=== PATIENT | male | born 1975 | race Caucasian/White ===

== ENCOUNTER 2017-04-25 21:55 | Emergency (ER) | payer SELFPAY ==
--- NOTE | 2017-04-25 22:44 | EDM.PDOC ---
[id number]: EVALUATION Time Seen by Provider: 04/25/17 22:41 Source of Information: Reports: Patient, Other ( friend) History Limitations: Reports: No Limitations - History of Present Illness INITIAL COMMENTS - FREE TEXT/NARRATIVE: pt has been severely depressed for the past 3 weeks. He has felt suicidal. Tonight he was going to shot himself with his friends gun. He has been drinkibng tonight. He had bout 6 beers. f Onset: Gradual Duration: Day(s): Location: Reports: Other (increased depression. Pt has a long history of depression. ) Associated Symptoms: Reports: No Other Symptoms Neck Pain Score (Numeric/FACES): 6 - Related Data Allergies Allergy/AdvReac Type Severity Reaction Status Date / Time Penicillins Allergy Cannot Verified 04/25/17 22:03 Remember Home Meds: Home Meds NK [No Known Home Meds] 04/25/17 [History] Past Medical History Psychiatric History: Reports: Depression, Psych Hospitalization(s), Suicidal Ideation - Infectious Disease History Infectious Disease History: Reports: Chicken Pox Social & Family History - Tobacco Use Smoking Status *Q: Current Every Day Smoker Years of Tobacco use: 35 Packs/Tins Daily: 1 - Caffeine Use Caffeine Use: Reports: Soda - Alcohol Use Days Per Week of Alcohol Use: 5 Number of Drinks Per Day: 6 Total Drinks Per Week: 30 - Recreational Drug Use Recreational Drug Use: Yes Recreational Drug Type: Reports: Marijuana/Hashish Recreational Drug Use Frequency: Weekly ED ROS GENERAL - Review of Systems Review Of Systems: See Below Constitutional: Reports: No Symptoms HEENT: Reports: No Symptoms Respiratory: Reports: No Symptoms Cardiovascular: Reports: No Symptoms Endocrine: Reports: No Symptoms GI/Abdominal: Reports: No Symptoms : Reports: No Symptoms Musculoskeletal: Reports: No Symptoms Skin: Reports: No Symptoms Neurological: Reports: No Symptoms Psychiatric: Reports: Agitation, Anxiety, Depression, Suicidal Ideation ED EXAM, BEHAVIORAL HEALTH - Physical Exam Exam: See Below Text/Narrative:: pt has a long history of depression but has not been medicated in the past. Exam Limited By: No Limitations General Appearance: Alert, Anxious Ears: Normal TMs Throat/Mouth: Normal Inspection Head: Atraumatic Respiratory/Chest: No Respiratory Distress Cardiovascular: Regular Rate, Rhythm GI/Abdominal: Soft, Non-Tender (Male) Exam: Deferred Rectal (Males) Exam: Deferred Back Exam: Normal Inspection Extremities: Normal Inspection Neurological: Alert, Normal Cognition Psychiatric: Alert, Normal Cognition, Oriented, Depressed Mood, Agitated, Suicidal Plan, Suicidal Thoughts, Other (pt had a gun and was going to shoot himself tonight. ) COURSE, BEHAVIORAL HEALTH COMP - Course Vital Signs: Last Vital Signs Temp 36.7 C 04/26/17 06:00 Pulse 82 04/26/17 06:00 Resp 12 04/26/17 06:00 BP 132/81 04/26/17 06:00 Pulse Ox 94 L 04/26/17 06:00 Orders, Labs, Meds: Laboratory Tests 04/25/17 04/25/17 04/25/17 Range/Units 22:27 22:27 22:27 WBC 9.6 (4.5-11.0) K/uL RBC 5.38 (4.30-5.90) M/uL Hgb 18.1 H* (12.0-15.0) g/dL Hct 51.3 (40.0-54.0) % MCV 95 (80-98) fL MCH 34 H (27-31) pg MCHC 35 (32-36) % Plt Count 330 (150-400) K/uL Neut % (Auto) 57 (36-66) % Lymph % (Auto) 26 (24-44) % [place] % (Auto) 11 H (2-6) % Eos % (Auto) 3 (2-4) % Baso % (Auto) 3 H (0-1) % Sodium 145 (140-148) mmol/L Potassium 3.8 (3.6-5.2) mmol/L Chloride 104 (100-108) mmol/L Carbon Dioxide 23 (21-32) mmol/L Anion Gap 18.1 H (5.0-14.0) mmol/L BUN 3 L (7-18) mg/dL Creatinine 0.7 L (0.8-1.3) mg/dL Est Cr Clr Drug Dosing 122.71 mL/min Estimated GFR (MDRD) > 60 (>60) Glucose 107 H (74-106) mg/dL Calcium 8.7 (8.5-10.1) mg/dL Total Bilirubin 0.2 (0.2-1.0) mg/dL AST 64 H (15-37) U/L ALT 58 (12-78) U/L Alkaline Phosphatase 98 (46-116) U/L Total Protein 8.2 (6.4-8.2) g/dL Albumin 4.4 (3.4-5.0) g/dL Globulin 3.8 H (2.3-3.5) g/dL Albumin/Globulin Ratio 1.2 (1.2-2.2) TSH, Ultra Sensitive (0.358-3.740) uIU/mL Urine Color Urine Appearance Urine pH (4.5-8.0) Ur Specific [place] (1.008-1.030) Urine Protein (NEGATIVE) mg/dL Urine Glucose (UA) (NEGATIVE) mg/dL Urine Ketones (NEGATIVE) mg/dL Urine Occult Blood (NEGATIVE) Urine Nitrite (NEGAITVE) Urine Bilirubin (NEGATIVE) Urine Urobilinogen (NORMAL) mg/dL Ur Leukocyte Esterase (NEGATIVE) Urine RBC (0-5) Urine WBC (0-5) Ur Epithelial Cells Amorphous Sediment Urine Bacteria Urine Mucus Urine Opiates Screen (NEGATIVE) Ur Oxycodone Screen (NEGATIVE) Urine Methadone Screen (NEGATIVE) Ur Propoxyphene Screen (NEGATIVE) Ur Barbiturates Screen (NEGATIVE) Ur Tricyclics Screen (NEGATIVE) Ur Phencyclidine Scrn (NEGATIVE) Ur Amphetamine Screen (NEGATIVE) U Methamphetamines Scrn (NEGATIVE) Urine MDMA Screen (NEGATIVE) U Benzodiazepines Scrn (NEGATIVE) U Cocaine Metab Screen (NEGATIVE) U Marijuana (THC) Screen (NEGATIVE) Ethyl Alcohol 354 mg/dL 04/25/17 04/25/17 04/25/17 Range/Units 22:32 22:32 22:44 WBC (4.5-11.0) K/uL RBC (4.30-5.90) M/uL Hgb (12.0-15.0) g/dL Hct (40.0-54.0) % MCV (80-98) fL MCH (27-31) pg MCHC (32-36) % Plt Count (150-400) K/uL Neut % (Auto) (36-66) % Lymph % (Auto) (24-44) % [place] % (Auto) (2-6) % Eos % (Auto) (2-4) % Baso % (Auto) (0-1) % Sodium (140-148) mmol/L Potassium (3.6-5.2) mmol/L Chloride (100-108) mmol/L Carbon Dioxide (21-32) mmol/L Anion Gap (5.0-14.0) mmol/L BUN (7-18) mg/dL Creatinine (0.8-1.3) mg/dL Est Cr Clr Drug Dosing mL/min Estimated GFR (MDRD) (>60) Glucose (74-106) mg/dL Calcium (8.5-10.1) mg/dL Total Bilirubin (0.2-1.0) mg/dL AST (15-37) U/L ALT (12-78) U/L Alkaline Phosphatase (46-116) U/L Total Protein (6.4-8.2) g/dL Albumin (3.4-5.0) g/dL Globulin (2.3-3.5) g/dL Albumin/Globulin Ratio (1.2-2.2) TSH, Ultra Sensitive 5.298 H (0.358-3.740) uIU/mL Urine Color Yellow Urine Appearance Clear Urine pH 5.0 (4.5-8.0) Ur Specific [place] 1.015 (1.008-1.030) Urine Protein Negative (NEGATIVE) mg/dL Urine Glucose (UA) Normal (NEGATIVE) mg/dL Urine Ketones Negative (NEGATIVE) mg/dL Urine Occult Blood Negative (NEGATIVE) Urine Nitrite Negative (NEGAITVE) Urine Bilirubin Negative (NEGATIVE) Urine Urobilinogen Normal (NORMAL) mg/dL Ur Leukocyte Esterase Negative (NEGATIVE) Urine RBC 0-5 (0-5) Urine WBC 0-5 (0-5) Ur Epithelial Cells Not seen Amorphous Sediment Not seen Urine Bacteria Not seen Urine Mucus Not seen Urine Opiates Screen Negative (NEGATIVE) Ur Oxycodone Screen Negative (NEGATIVE) Urine Methadone Screen Negative (NEGATIVE) Ur Propoxyphene Screen Negative (NEGATIVE) Ur Barbiturates Screen Negative (NEGATIVE) Ur Tricyclics Screen Negative (NEGATIVE) Ur Phencyclidine Scrn Negative (NEGATIVE) Ur Amphetamine Screen Negative (NEGATIVE) U Methamphetamines Scrn Negative (NEGATIVE) Urine MDMA Screen Negative (NEGATIVE) U Benzodiazepines Scrn Negative (NEGATIVE) U Cocaine Metab Screen Negative (NEGATIVE) U Marijuana (THC) Screen Negative (NEGATIVE) Ethyl Alcohol mg/dL 04/26/17 Range/Units 02:20 WBC (4.5-11.0) K/uL RBC (4.30-5.90) M/uL Hgb (12.0-15.0) g/dL Hct (40.0-54.0) % MCV (80-98) fL MCH (27-31) pg MCHC (32-36) % Plt Count (150-400) K/uL Neut % (Auto) (36-66) % Lymph % (Auto) (24-44) % [place] % (Auto) (2-6) % Eos % (Auto) (2-4) % Baso % (Auto) (0-1) % Sodium (140-148) mmol/L Potassium (3.6-5.2) mmol/L Chloride (100-108) mmol/L Carbon Dioxide (21-32) mmol/L Anion Gap (5.0-14.0) mmol/L BUN (7-18) mg/dL Creatinine (0.8-1.3) mg/dL Est Cr Clr Drug Dosing mL/min Estimated GFR (MDRD) (>60) Glucose (74-106) mg/dL Calcium (8.5-10.1) mg/dL Total Bilirubin (0.2-1.0) mg/dL AST (15-37) U/L ALT (12-78) U/L Alkaline Phosphatase (46-116) U/L Total Protein (6.4-8.2) g/dL Albumin (3.4-5.0) g/dL Globulin (2.3-3.5) g/dL Albumin/Globulin Ratio (1.2-2.2) TSH, Ultra Sensitive (0.358-3.740) uIU/mL Urine Color Urine Appearance Urine pH (4.5-8.0) Ur Specific [place] (1.008-1.030) Urine Protein (NEGATIVE) mg/dL Urine Glucose (UA) (NEGATIVE) mg/dL Urine Ketones (NEGATIVE) mg/dL Urine Occult Blood (NEGATIVE) Urine Nitrite (NEGAITVE) Urine Bilirubin (NEGATIVE) Urine Urobilinogen (NORMAL) mg/dL Ur Leukocyte Esterase (NEGATIVE) Urine RBC (0-5) Urine WBC (0-5) Ur Epithelial Cells Amorphous Sediment Urine Bacteria Urine Mucus Urine Opiates Screen (NEGATIVE) Ur Oxycodone Screen (NEGATIVE) Urine Methadone Screen (NEGATIVE) Ur Propoxyphene Screen (NEGATIVE) Ur Barbiturates Screen (NEGATIVE) Ur Tricyclics Screen (NEGATIVE) Ur Phencyclidine Scrn (NEGATIVE) Ur Amphetamine Screen (NEGATIVE) U Methamphetamines Scrn (NEGATIVE) Urine MDMA Screen (NEGATIVE) U Benzodiazepines Scrn (NEGATIVE) U Cocaine Metab Screen (NEGATIVE) U Marijuana (THC) Screen (NEGATIVE) Ethyl Alcohol 224 mg/dL Medications Discontinued Medications Generic Name Dose Route Start Last Admin Trade Name Freq PRN Reason Stop Dose Admin Sodium Chloride 1,000 mls @ 999 mls/hr 04/26/17 01:00 04/26/17 01:17 Normal Saline IV 999 mls/hr ASDIRECTED STEPHEN Administration Lorazepam 1 mg 04/25/17 23:44 04/25/17 23:51 Ativan PO 04/25/17 23:45 1 mg ONETIME ONE Administration Medical Clearance: 04/26/17 02:17 pt had a neg drug scree. His etoh was greater than 3. He clearly has felt suicidal for 3 weeks. Departure - Departure Time of Disposition: 06:55 Disposition: DC/Tfer to Psych Hosp/Unit 65 Condition: Poor Clinical Impression: Depression, Suicidal ideation - Discharge Information Referrals: PCP,None [Primary Care Provider] - Forms: ED Department Discharge Care Plan Goals: transfer to [facility] in [place]
[2017-04-25] MEDS ORDERED: LORazepam 1 MG Tab PO ONE (23:44)
[2017-04-26] MEDS ORDERED: Sodium Chloride 0.9% 1,000 ML IV SCH (01:00)
[2017-04-26 06:02] VITALS: BP 132/81
== END 2017-04-26 06:54 ==
LOC: JP.ED 21:55
DX: F32.9 Major depressive disorder, single episode, unspecified (principal); R45.851 Suicidal ideations; F17.210 Nicotine dependence, cigarettes, uncomplicated; Z88.0 Allergy status to penicillin
CPT/HCPCS: 36415; 80053; 80305; 81001; 84443; 85025; 96360; 99285; A9270; G0480; J7040

== ENCOUNTER 2019-11-19 10:50 | Emergency (ER) | payer MEDICAID ==
--- NOTE | 2019-11-19 13:50 | EDM.PDOCBH ---
ED HPI GENERAL MEDICAL PROBLEM - General Chief Complaint: Behavioral/Psych Stated Complaint: EVAL Time Seen by Provider: 11/19/19 11:45 Source of Information: Reports: Patient History Limitations: Reports: No Limitations - History of Present Illness INITIAL COMMENTS - FREE TEXT/NARRATIVE: pt arrived with a history of persistent depression. He has not been medicated/ He has no insurance He can not afford the medicatiopn he was perscribed in the past. Onset: Other (pt had 2 beers last nite. He was very depressed and he went to [employer]. They did not know he was there. He took a gun and he was going to use it on himself. At this point he does not feel suicidal but he is looking for help. ) Duration: Hour(s): Location: Reports: Generalized Associated Symptoms: Reports: No Other Symptoms lower back and feet Pain Score (Numeric/FACES): 5 - Related Data Allergies Allergy/AdvReac Type Severity Reaction Status Date / Time Penicillins Allergy Cannot Verified 11/19/19 11:43 Remember Home Meds: Home Meds NK [No Known Home Meds] 04/25/17 [History] Past Medical History Musculoskeletal History: Reports: Back Pain, Chronic Psychiatric History: Reports: Depression, Psych Hospitalization(s), Suicidal Ideation Other Psychiatric History: thought about using a gun but no acess to one - Infectious Disease History Infectious Disease History: Reports: Chicken Pox, Influenza Social & Family History - Tobacco Use Smoking Status *Q: Current Every Day Smoker Years of Tobacco use: 37 Packs/Tins Daily: 1 - Caffeine Use Caffeine Use: Reports: Soda - Recreational Drug Use Recreational Drug Use: Yes Recreational Drug Type: Reports: Marijuana/Hashish ED ROS GENERAL - Review of Systems Review Of Systems: See Below Constitutional: Reports: No Symptoms HEENT: Reports: No Symptoms Respiratory: Reports: No Symptoms Cardiovascular: Reports: No Symptoms Endocrine: Reports: No Symptoms GI/Abdominal: Reports: No Symptoms Musculoskeletal: Reports: No Symptoms Skin: Reports: No Symptoms Neurological: Reports: No Symptoms Psychiatric: Reports: Anxiety, Depression, Suicidal Ideation ED EXAM, BEHAVIORAL HEALTH - Physical Exam Exam: See Below Text/Narrative:: pt arrived with a history of being quite depressed for a long period of time. He has not been able to afford his medication so it was not filled. He has no insurance. He works regularly at [employer] [place]. Exam Limited By: No Limitations General Appearance: Alert, No Apparent Distress, Anxious Ears: Normal TMs Nose: Normal Inspection Throat/Mouth: Normal Inspection Head: Atraumatic Neck: Normal Inspection Respiratory/Chest: No Respiratory Distress Cardiovascular: Regular Rate, Rhythm GI/Abdominal: Soft, Non-Tender (Male) Exam: Deferred Back Exam: Normal Inspection Extremities: Normal Inspection COURSE, BEHAVIORAL HEALTH COMP - Course Vital Signs: Last Vital Signs Temp 37.3 C 11/19/19 15:23 Pulse 60 11/19/19 17:08 Resp 18 11/19/19 17:08 BP 133/88 11/19/19 17:08 Pulse Ox 99 11/19/19 17:08 Orders, Labs, Meds: Laboratory Tests 11/19/19 11/19/19 11/19/19 Range/Units 12:42 12:42 12:49 WBC 9.0 (4.5-11.0) K/uL RBC 4.91 (4.30-5.90) M/uL Hgb 16.1 H D (12.0-15.0) g/dL Hct 47.5 (40.0-54.0) % MCV 97 (80-98) fL MCH 33 H (27-31) pg MCHC 34 (32-36) % Plt Count 282 (150-400) K/uL Neut % (Auto) 66 (36-66) % Lymph % (Auto) 16 L (24-44) % [place] % (Auto) 14 H (2-6) % Eos % (Auto) 3 (2-4) % Baso % (Auto) 1 (0-1) % Sodium (140-148) mmol/L Potassium (3.6-5.2) mmol/L Chloride (100-108) mmol/L Carbon Dioxide (21-32) mmol/L Anion Gap (5.0-14.0) mmol/L BUN (7-18) mg/dL Creatinine (0.8-1.3) mg/dL Est Cr Clr Drug Dosing mL/min Estimated GFR (MDRD) (>60) Glucose (74-106) mg/dL Calcium (8.5-10.1) mg/dL Total Bilirubin (0.2-1.0) mg/dL AST (15-37) U/L ALT (12-78) U/L Alkaline Phosphatase (46-116) U/L Total Protein (6.4-8.2) g/dL Albumin (3.4-5.0) g/dL Globulin (2.3-3.5) g/dL Albumin/Globulin Ratio (1.2-2.2) Urine Color Yellow (YELLOW) Urine Appearance Clear (CLEAR) Urine pH 6.0 (5.0-8.0) Ur Specific [place] 1.015 (1.008-1.030) Urine Protein Negative (NEGATIVE) mg/dL Urine Glucose (UA) Negative (NEGATIVE) mg/dL Urine Ketones Negative (NEGATIVE) mg/dL Urine Occult Blood Negative (NEGATIVE) Urine Nitrite Negative (NEGATIVE) Urine Bilirubin Negative (NEGATIVE) Urine Urobilinogen 1.0 (0.2-1.0) EU/dL Ur Leukocyte Esterase Negative (NEGATIVE) Urine RBC Not seen (0-5) Urine WBC Not seen (0-5) Ur Epithelial Cells Not seen Amorphous Sediment Rare Urine Bacteria Not seen Urine Mucus Rare Urine Opiates Screen Negative (NEGATIVE) Ur Oxycodone Screen Negative (NEGATIVE) Urine Methadone Screen Negative (NEGATIVE) Ur Propoxyphene Screen Negative (NEGATIVE) Ur Barbiturates Screen Negative (NEGATIVE) Ur Tricyclics Screen Negative (NEGATIVE) Ur Phencyclidine Scrn Negative (NEGATIVE) Ur Amphetamine Screen Negative (NEGATIVE) U Methamphetamines Scrn Negative (NEGATIVE) Urine MDMA Screen Negative (NEGATIVE) U Benzodiazepines Scrn Negative (NEGATIVE) U Cocaine Metab Screen Negative (NEGATIVE) U Marijuana (THC) Screen Negative (NEGATIVE) Ethyl Alcohol mg/dL 11/19/19 11/19/19 Range/Units 12:49 12:49 WBC (4.5-11.0) K/uL RBC (4.30-5.90) M/uL Hgb (12.0-15.0) g/dL Hct (40.0-54.0) % MCV (80-98) fL MCH (27-31) pg MCHC (32-36) % Plt Count (150-400) K/uL Neut % (Auto) (36-66) % Lymph % (Auto) (24-44) % [place] % (Auto) (2-6) % Eos % (Auto) (2-4) % Baso % (Auto) (0-1) % Sodium 133 L (140-148) mmol/L Potassium 3.8 (3.6-5.2) mmol/L Chloride 95 L (100-108) mmol/L Carbon Dioxide 29 (21-32) mmol/L Anion Gap 12.8 (5.0-14.0) mmol/L BUN 4 L (7-18) mg/dL Creatinine 0.9 (0.8-1.3) mg/dL Est Cr Clr Drug Dosing 86.63 mL/min Estimated GFR (MDRD) > 60 (>60) Glucose 134 H (74-106) mg/dL Calcium 8.4 L (8.5-10.1) mg/dL Total Bilirubin 0.9 D (0.2-1.0) mg/dL AST 49 H (15-37) U/L ALT 32 (12-78) U/L Alkaline Phosphatase 93 (46-116) U/L Total Protein 7.2 (6.4-8.2) g/dL Albumin 4.0 (3.4-5.0) g/dL Globulin 3.2 (2.3-3.5) g/dL Albumin/Globulin Ratio 1.3 (1.2-2.2) Urine Color (YELLOW) Urine Appearance (CLEAR) Urine pH (5.0-8.0) Ur Specific [place] (1.008-1.030) Urine Protein (NEGATIVE) mg/dL Urine Glucose (UA) (NEGATIVE) mg/dL Urine Ketones (NEGATIVE) mg/dL Urine Occult Blood (NEGATIVE) Urine Nitrite (NEGATIVE) Urine Bilirubin (NEGATIVE) Urine Urobilinogen (0.2-1.0) EU/dL Ur Leukocyte Esterase (NEGATIVE) Urine RBC (0-5) Urine WBC (0-5) Ur Epithelial Cells Amorphous Sediment Urine Bacteria Urine Mucus Urine Opiates Screen (NEGATIVE) Ur Oxycodone Screen (NEGATIVE) Urine Methadone Screen (NEGATIVE) Ur Propoxyphene Screen (NEGATIVE) Ur Barbiturates Screen (NEGATIVE) Ur Tricyclics Screen (NEGATIVE) Ur Phencyclidine Scrn (NEGATIVE) Ur Amphetamine Screen (NEGATIVE) U Methamphetamines Scrn (NEGATIVE) Urine MDMA Screen (NEGATIVE) U Benzodiazepines Scrn (NEGATIVE) U Cocaine Metab Screen (NEGATIVE) U Marijuana (THC) Screen (NEGATIVE) Ethyl Alcohol < 3 mg/dL Medications Discontinued Medications Generic Name Dose Route Start Last Admin Trade Name Freq PRN Reason Stop Dose Admin Lorazepam 0.5 mg 11/19/19 15:50 11/19/19 15:55 Ativan PO 11/19/19 15:51 0.5 mg ONETIME ONE Administration Metoprolol Succinate 25 mg 11/19/19 15:42 11/19/19 15:53 Toprol Xl PO 11/19/19 15:43 25 mg ONETIME ONE Administration Nicotine 21 mg 11/19/19 18:56 11/19/19 19:05 Habitrol TRDERM 11/19/19 18:57 21 mg ONETIME ONE Administration Medical Clearance: 11/19/19 14:03 pt had a gun and stated he was going to use it on himself. His drug screen is neg. He states he does use Pot at times. He is unable to purchase his meds because he has no insurance. [facility] DID HELP HIM FILL OUT THE MEDICAL ASSISTANCE FORM. 11/19/19 15:52 Departure - Departure Time of Disposition: 20:00 Disposition: DC/Tfer to Psych Hosp/Unit 65 Condition: Fair Clinical Impression: Depression, Suicidal behavior with attempted self-injury - Discharge Information Referrals: PCP,None [Primary Care Provider] - Forms: ED Department Discharge Care Plan Goals: TRANSFER TO [facility]. FOR INPATIENT CARE Sepsis Event Note - Evaluation Sepsis Screening Result: No Definite Risk - Focused Exam Date Exam was Performed: 11/24/19 Time Exam was Performed: 07:17
[2019-11-19] MEDS ORDERED: Metoprolol Succinate 25 MG Tab.ER PO ONE (15:42)
[2019-11-19] MEDS ORDERED: LORazepam 0.5 MG Tab PO ONE (15:50)
[2019-11-19 17:09] VITALS: BP 133/88; PULSE 60
[2019-11-19] MEDS ORDERED: Nicotine 21 MG/24 Hr Patch TRDERM ONE (18:56)
== END 2019-11-19 22:16 ==
LOC: JP.ED 10:50
DX: F32.9 Major depressive disorder, single episode, unspecified (principal); F17.210 Nicotine dependence, cigarettes, uncomplicated; Z91.5 Personal history of self-harm; Z88.0 Allergy status to penicillin
CPT/HCPCS: 36415; 80053; 80305; 80320; 81001; 85025; 99284; A9270; G0480

== ENCOUNTER 2021-09-19 20:16 | Emergency (ER) | payer MEDICAID ==
[2021-09-19 23:08] VITALS: BP 163/117; PULSE 85
--- NOTE | 2021-09-19 23:33 | EDM.PDOC ---
ED HPI GENERAL MEDICAL PROBLEM - General Chief Complaint: Upper Extremity Injury/Pain Stated Complaint: FELL HURT LEFT SHOULDER Time Seen by Provider: 09/19/21 22:59 Source of Information: Reports: Patient History Limitations: Reports: No Limitations - History of Present Illness INITIAL COMMENTS - FREE TEXT/NARRATIVE: A 45-year-old male presenting to the ED for evaluation of left shoulder pain and bruising. The patient slipped and fell on a concrete floor several days ago causing injury to his left shoulder. Since then he has been unable to raise the arm above 90 degrees. He denies any new numbness or tingling. His only limitation in his range of motion. Does have significant bruising over the deltoid and upper part of the shoulder. - Related Data Allergies Allergy/AdvReac Type Severity Reaction Status Date / Time Penicillins Allergy Cannot Verified 11/19/19 11:43 Remember Home Meds: Home Meds NK [No Known Home Meds] 04/25/17 [History] Past Medical History Musculoskeletal History: Reports: Back Pain, Chronic Psychiatric History: Reports: Depression, Psych Hospitalization(s), Suicidal Ideation Other Psychiatric History: thought about using a gun but no acess to one - Infectious Disease History Infectious Disease History: Reports: Chicken Pox, Influenza Social & Family History - Tobacco Use Tobacco Use Status *Q: Current Every Day Tobacco User Years of Tobacco use: 30 Packs/Tins Daily: 0.1 - Caffeine Use Caffeine Use: Reports: Coffee Caffeine Use Comment: occassional coffee - Alcohol Use Days Per Week of Alcohol Use: 1 Number of Drinks Per Day: 1 Total Drinks Per Week: 1 - Recreational Drug Use Recreational Drug Use: No Review of Systems - Review of Systems Review Of Systems: See Below Constitutional: Reports: No Symptoms Musculoskeletal: Reports: Shoulder Pain (Left shoulder pain with reduced range of motion after sustaining a fall on a concrete floor 2 days ago.) ED EXAM, GENERAL - Physical Exam Exam: See Below Exam Limited By: No Limitations General Appearance: Alert, Mild Distress Peripheral Pulses: 2+: Radial (L) Extremities: Joint Swelling (Significant bruising and swelling over the superior aspect of the left shoulder.), Limited Range of Motion (Reduced range of motion with the inability to extend greater than 70 degrees, flex greater than 90 degrees, abduction greater than 90 degrees. Increased pain with external rotation of the shoulder.) Neurological: Alert, Oriented, Normal Cognition, No Motor/Sensory Deficits Psychiatric: Anxious Skin Exam: Ecchymosis (Large amount of ecchymosis over the superior aspect of the left shoulder) Course - Vital Signs Last Recorded V/S: Last Vital Signs Temp 36.9 C 09/19/21 22:55 Pulse 85 09/19/21 22:55 Resp 16 09/19/21 22:55 BP 163/117 H 09/19/21 22:55 Pulse Ox 100 09/19/21 22:55 - Orders/Labs/Meds Orders: Active Orders 24 hr Category Date Time Status Shoulder Comp Lt [CR] Stat Exams 09/19/21 22:48 Taken - Radiology Interpretation Free Text/Narrative:: I reviewed the three-view x-ray of the left shoulder showing an acromial fracture that is displaced. The humerus, glenoid, and clavicle all appear to be normal. The remainder of the scapula appears to be uninjured. - Re-Assessments/Exams Free Text/Narrative Re-Assessment/Exam: 09/19/21 23:31 I discussed the case with Dr. Espinoza who recommended putting the patient in a simple sling with no use of the left arm and he will follow-up in the orthopedic clinic next week. Departure - Departure Time of Disposition: 23:32 Disposition: Home, Self-Care 01 Clinical Impression: Displaced fracture of left acromial process Qualifiers: Encounter type: initial encounter Fracture type: closed Qualified Code(s): S42.122A - Displaced fracture of acromial process, left shoulder, initial encounter for closed fracture - Discharge Information Instructions: Shoulder Pain, [id number] Referrals: Yumiko Patel PA-C [Primary Care Provider] - Care Plan Goals: Your work-up today has shown that you have a left acromial fracture which is one of the bones that make up the socket of the shoulder. This is mildly displaced but likely will not require any surgery. We are going to put you in a simple sling to support the arm. Do not use the arm as this will worsen pain and slow the healing process. This will likely take 6 weeks to heal. I have put through a consult for you to see Dr. Espinoza in the orthopedic clinic in follow-up. They will contact you to schedule this appointment. You may ice the area to reduce swelling. Tylenol for pain control. I have also provided a work note limiting the use of the left arm until cleared by orthopedics. Sepsis Event Note (ED) - Evaluation Sepsis Screening Result: No Definite Risk - Focused Exam Vital Signs: Vital Signs Temp Pulse Resp BP Pulse Ox 09/19/21 22:55 36.9 C 85 16 163/117 H 100 - Problem List & Annotations (1) Displaced fracture of left acromial process SNOMED Code(s): 8866773, [id number] Code(s): S42.122A - DISP FX OF ACROMIAL PROCESS, LEFT SHOULDER, INIT FOR CLOS FX Status: Acute Priority: Medium Current Visit: Yes Qualifiers: Encounter type: initial encounter Fracture type: closed Qualified Code(s): S42.122A - Displaced fracture of acromial process, left shoulder, initial encounter for closed fracture - Problem List Review Problem List Initiated/Reviewed/Updated: Yes - My Orders Last 24 Hours: My Active Orders 09/19/21 22:48 Shoulder Comp Lt [CR] Stat - Assessment/Plan Last 24 Hours: My Active Orders 09/19/21 22:48 Shoulder Comp Lt [CR] Stat
--- NOTE | 2021-09-20 08:58 | CR ---
Shoulder Comp Lt CLINICAL HISTORY: Fall FINDINGS: There is a lucency through the tip of the acromium. This may represent an os acromiale. Nondisplaced fracture is not absolutely excluded. Impression: Irregular lucency through the acromial process may represent an os acromiale. A nondisplaced fracture is felt less likely but cannot be excluded. This would likely elicit point tenderness. Clinical correlation is necessary
== END 2021-09-19 23:53 | disposition home or self-care (01) ==
LOC: JP.ED 20:16
DX: S42.122A Displaced fracture of acromial process, left shoulder, initial encounter for closed fracture (principal); Z88.0 Allergy status to penicillin; Z72.0 Tobacco use; W01.0XXA Fall on same level from slipping, tripping and stumbling without subsequent striking against object, initial encounter
CPT/HCPCS: 73030-26-LT; 73030-LT; 99283-25

== ENCOUNTER 2021-09-21 21:53 | Emergency (ER) | payer MEDICAID ==
--- NOTE | 2021-09-21 22:39 | EDM.PDOC ---
<Shala Beltrán - Last Filed: 09/22/21 01:33> ED HPI GENERAL MEDICAL PROBLEM - General Chief Complaint: General Stated Complaint: Medication Refill Time Seen by Provider: 09/21/21 22:33 Source of Information: Reports: Patient History Limitations: Reports: No Limitations - History of Present Illness INITIAL COMMENTS - FREE TEXT/NARRATIVE: pt arrived with a history of being out of his medication--seroquel, zoloft, metoprol tartrate The real story is that 5 days ago he took about 20 days of these meds and he has been in and out since that time. He was suicidal at the time and he still fels suicidal. Duration: Day(s): Location: Reports: Other ( fracture of the acroium recently He states that the overdose is why he fell and ended up with a left acromim fracture. ) Associated Symptoms: Reports: Other ( depressed and he is feeling suicidal. ) Left Shoulder Pain Score (Numeric/FACES): 2 - Related Data Allergies Allergy/AdvReac Type Severity Reaction Status Date / Time Penicillins Allergy Cannot Verified 09/21/21 21:59 Remember Home Meds: Home Meds Metoprolol Tartrate 25 mg PO BID 09/19/21 [History] QUEtiapine [SEROquel XR] 150 mg PO DAILY 09/19/21 [History] hydrOXYzine HCL [Hydroxyzine HCl] 50 mg PO DAILY 09/19/21 [History] Sertraline [Zoloft] 50 mg PO DAILY 09/21/21 [History] Past Medical History Cardiovascular History: Reports: Hypertension Musculoskeletal History: Reports: Back Pain, Chronic Psychiatric History: Reports: Anxiety, Depression, Psych Hospitalization(s), Suicidal Ideation Other Psychiatric History: thought about using a gun but no acess to one - Infectious Disease History Infectious Disease History: Reports: Chicken Pox, Influenza Social & Family History - Tobacco Use Tobacco Use Status *Q: Light Tobacco User Years of Tobacco use: 30 Packs/Tins Daily: 0.1 - Caffeine Use Caffeine Use: Reports: Coffee Caffeine Use Comment: not a daily coffee drinker - Alcohol Use Days Per Week of Alcohol Use: 1 Number of Drinks Per Day: 1 Total Drinks Per Week: 1 - Recreational Drug Use Recreational Drug Use: No ED ROS GENERAL - Review of Systems Review Of Systems: See Below Constitutional: Reports: No Symptoms HEENT: Reports: No Symptoms Respiratory: Reports: No Symptoms Cardiovascular: Reports: No Symptoms Endocrine: Reports: No Symptoms GI/Abdominal: Reports: No Symptoms : Reports: No Symptoms Musculoskeletal: Reports: No Symptoms Neurological: Reports: No Symptoms Psychiatric: Reports: Anxiety, Depression, Suicidal Ideation, Other (pt tookabout 20 days of his seroquel, zoloft and metorprol on the . He fell and he did end up with a fracture in his left arm because of the sedation. He states he was very suicidal at that time. ) ED EXAM, GENERAL - Physical Exam Exam: See Below Free Text/Narrative:: pt gives a history of being suicidal on the and taking a large amount of pills. He has been out of it for the past few days. He did fall because of the overdose and had a acroium fracture on the left. He is out of alot of his pills because of the overdose. Exam Limited By: No Limitations General Appearance: Alert, Anxious, Mild Distress, Other (pupils are equal and reactive. ) Ears: Normal TMs Nose: Normal Inspection Throat/Mouth: Normal Inspection Head: Atraumatic Neck: Normal Inspection Respiratory/Chest: No Respiratory Distress Cardiovascular: Regular Rate, Rhythm GI/Abdominal: Soft, Non-Tender (Male) Exam: Deferred Rectal (Males) Exam: Deferred Back Exam: Normal Inspection Extremities: No: Other (pt is in a sling from the acrium fracture/) Neurological: Alert, Oriented, Normal Cognition Psychiatric: Anxious Skin Exam: Other (pt has redness over her rt breast and has early mastitis. ) Course - Re-Assessments/Exams Free Text/Narrative Re-Assessment/Exam: 09/22/21 01:37 pt has a neg drug screen. He feels that he is still suicidal. Departure - Departure Disposition: DC/Tfer to Psych Hosp/[facility] Clinical Impression: Suicidal ideation - Discharge Information Referrals: Yumiko Patel PA-C [Primary Care Provider] - Forms: ED Department Discharge Sepsis Event Note (ED) - Evaluation Sepsis Screening Result: No Definite Risk <OfficerAlvin - Last Filed: 09/22/21 13:50> Course - Vital Signs Last Recorded V/S: Last Vital Signs Temp 97.0 F 09/22/21 08:00 Pulse 91 09/22/21 08:00 Resp 18 09/22/21 08:00 BP 131/79 11/11/21 08:00 Pulse Ox 97 09/22/21 08:00 - Orders/Labs/Meds Orders: Active Orders 24 hr Category Date Time Status Metoprolol Tartrate [Lopressor] Med 09/22/21 14:00 Ordered 25 mg PO Q12H QUEtiapine [SEROqueL] Med 09/22/21 21:00 Ordered 150 mg PO BEDTIME Sertraline [Zoloft] Med 09/22/21 14:00 Ordered 50 mg PO DAILY hydrOXYzine HCL [Atarax] Med 09/22/21 13:46 Once 50 mg PO ONETIME ONE Labs: Laboratory Tests 09/21/21 09/21/21 09/21/21 Range/Units 23:03 23:03 23:03 WBC 11.5 H (4.5-11.0) K/uL RBC 4.90 (4.30-5.90) M/uL Hgb 13.9 D (12.0-15.0) g/dL Hct 40.5 (40.0-54.0) % MCV 83 (80-98) fL MCH 28 (27-31) pg MCHC 34 (32-36) % Plt Count 360 (150-400) K/uL Neut % (Auto) 60.2 (36-66) % Lymph % (Auto) 25.2 (24-44) % Weakley % (Auto) 10.7 H (2-6) % Eos % (Auto) 2.9 (2-4) % Baso % (Auto) 1.0 (0-1) % Sodium 143 (140-148) mmol/L Potassium 3.4 L (3.6-5.2) mmol/L Chloride 102 (100-108) mmol/L Carbon Dioxide 24 (21-32) mmol/L Anion Gap 20.4 H (5.0-14.0) mmol/L BUN 10 D (7-18) mg/dL Creatinine 0.8 (0.8-1.3) mg/dL Est Cr Clr Drug Dosing 99.30 mL/min Estimated GFR (MDRD) > 60 (>60) Glucose 118 H (74-106) mg/dL Calcium 9.0 (8.5-10.1) mg/dL Total Bilirubin 0.3 D (0.2-1.0) mg/dL AST 80 H (15-37) U/L ALT 60 D (12-78) U/L Alkaline Phosphatase 118 H (46-116) U/L Total Protein 7.7 (6.4-8.2) g/dL Albumin 4.1 (3.4-5.0) g/dL Globulin 3.6 H (2.3-3.5) g/dL Albumin/Globulin Ratio 1.1 L (1.2-2.2) Urine Color (YELLOW) Urine Appearance (CLEAR) Urine pH (5.0-8.0) Ur Specific Brillion (1.008-1.030) Urine Protein (NEGATIVE) mg/dL Urine Glucose (UA) (NEGATIVE) mg/dL Urine Ketones (NEGATIVE) mg/dL Urine Occult Blood (NEGATIVE) Urine Nitrite (NEGATIVE) Urine Bilirubin (NEGATIVE) Urine Urobilinogen (0.2-1.0) EU/dL Ur Leukocyte Esterase (NEGATIVE) Urine RBC (0-5) Urine WBC (0-5) Ur Epithelial Cells Amorphous Sediment Urine Bacteria Urine Mucus Urine Opiates Screen (NEGATIVE) Ur Oxycodone Screen (NEGATIVE) Urine Methadone Screen (NEGATIVE) Ur Propoxyphene Screen (NEGATIVE) Ur Barbiturates Screen (NEGATIVE) Ur Tricyclics Screen (NEGATIVE) Ur Phencyclidine Scrn (NEGATIVE) Ur Amphetamine Screen (NEGATIVE) U Methamphetamines Scrn (NEGATIVE) Urine MDMA Screen (NEGATIVE) U Benzodiazepines Scrn (NEGATIVE) U Cocaine Metab Screen (NEGATIVE) U Marijuana (THC) Screen (NEGATIVE) Ethyl Alcohol 174 mg/dL SARS CoV-2 RNA Rapid ISHAAN 09/22/21 09/22/21 09/22/21 Range/Units 00:39 00:39 09:34 WBC (4.5-11.0) K/uL RBC (4.30-5.90) M/uL Hgb (12.0-15.0) g/dL Hct (40.0-54.0) % MCV (80-98) fL MCH (27-31) pg MCHC (32-36) % Plt Count (150-400) K/uL Neut % (Auto) (36-66) % Lymph % (Auto) (24-44) % Weakley % (Auto) (2-6) % Eos % (Auto) (2-4) % Baso % (Auto) (0-1) % Sodium (140-148) mmol/L Potassium (3.6-5.2) mmol/L Chloride (100-108) mmol/L Carbon Dioxide (21-32) mmol/L Anion Gap (5.0-14.0) mmol/L BUN (7-18) mg/dL Creatinine (0.8-1.3) mg/dL Est Cr Clr Drug Dosing mL/min Estimated GFR (MDRD) (>60) Glucose (74-106) mg/dL Calcium (8.5-10.1) mg/dL Total Bilirubin (0.2-1.0) mg/dL AST (15-37) U/L ALT (12-78) U/L Alkaline Phosphatase (46-116) U/L Total Protein (6.4-8.2) g/dL Albumin (3.4-5.0) g/dL Globulin (2.3-3.5) g/dL Albumin/Globulin Ratio (1.2-2.2) Urine Color Yellow (YELLOW) Urine Appearance Clear (CLEAR) Urine pH 5.0 (5.0-8.0) Ur Specific Brillion 1.010 (1.008-1.030) Urine Protein Negative (NEGATIVE) mg/dL Urine Glucose (UA) Negative (NEGATIVE) mg/dL Urine Ketones Negative (NEGATIVE) mg/dL Urine Occult Blood Negative (NEGATIVE) Urine Nitrite Negative (NEGATIVE) Urine Bilirubin Negative (NEGATIVE) Urine Urobilinogen 0.2 (0.2-1.0) EU/dL Ur Leukocyte Esterase Negative (NEGATIVE) Urine RBC 0-5 (0-5) Urine WBC 0-5 (0-5) Ur Epithelial Cells Rare Amorphous Sediment Rare Urine Bacteria Rare Urine Mucus Rare Urine Opiates Screen Negative (NEGATIVE) Ur Oxycodone Screen Negative (NEGATIVE) Urine Methadone Screen Negative (NEGATIVE) Ur Propoxyphene Screen Negative (NEGATIVE) Ur Barbiturates Screen Negative (NEGATIVE) Ur Tricyclics Screen Negative (NEGATIVE) Ur Phencyclidine Scrn Negative (NEGATIVE) Ur Amphetamine Screen Negative (NEGATIVE) U Methamphetamines Scrn Negative (NEGATIVE) Urine MDMA Screen Negative (NEGATIVE) U Benzodiazepines Scrn Negative (NEGATIVE) U Cocaine Metab Screen Negative (NEGATIVE) U Marijuana (THC) Screen Negative (NEGATIVE) Ethyl Alcohol mg/dL SARS CoV-2 RNA Rapid ISHAAN Negative Meds: Medications Discontinued Medications Generic Name Dose Route Start Last Admin Trade Name Kimberly PRN Reason Stop Dose Admin Metoprolol Tartrate 25 mg 09/22/21 01:39 09/22/21 01:58 Metoprolol Tartrate 25 Mg Tab PO 09/22/21 01:40 25 mg ONETIME ONE Administration Quetiapine Fumarate 150 mg 09/22/21 01:38 09/22/21 01:57 Quetiapine 25 Mg Tab PO 09/22/21 01:39 150 mg ONETIME ONE Administration Sertraline HCl 50 mg 09/22/21 01:40 09/22/21 01:58 Sertraline 50 Mg Tab PO 09/22/21 01:41 50 mg ONETIME ONE Administration Departure - Departure Time of Disposition: 13:50 Condition: Fair Sepsis Event Note (ED) - Focused Exam Vital Signs: Vital Signs Temp Pulse Pulse Resp BP BP Pulse Ox 09/22/21 08:00 97.0 F 91 18 131/79 97 09/22/21 01:58 94 150/105 H - My Orders Last 24 Hours: My Active Orders 09/22/21 13:46 hydrOXYzine HCL [Atarax] 50 mg PO ONETIME ONE 09/22/21 14:00 Metoprolol Tartrate [Lopressor] 25 mg PO Q12H Sertraline [Zoloft] 50 mg PO DAILY 09/22/21 21:00 QUEtiapine [SEROqueL] 150 mg PO BEDTIME - Assessment/Plan Last 24 Hours: My Active Orders 09/22/21 13:46 hydrOXYzine HCL [Atarax] 50 mg PO ONETIME ONE 09/22/21 14:00 Metoprolol Tartrate [Lopressor] 25 mg PO Q12H Sertraline [Zoloft] 50 mg PO DAILY 09/22/21 21:00 QUEtiapine [SEROqueL] 150 mg PO BEDTIME Plan: Assessment Acuity = acute Site and laterality = suicidal ideation Etiology = unknown Manifestations = none Location of injury = Home Lab values = CBC, CMP unremarkable urinalysis negative, urine drug screen negative alcohol is 174 Plan Patient was accepted to [facility] will be transported via psychiatric transport This note was dictated using [employer] voice recognition software please call with any questions on syntax or grammar.
[2021-09-22] MEDS ORDERED: QUEtiapine 25 MG Tab PO ONE (01:38)
[2021-09-22] MEDS ORDERED: Metoprolol Tartrate 25 MG Tab PO ONE (01:39)
[2021-09-22] MEDS ORDERED: Sertraline 50 MG Tab PO ONE (01:40)
[2021-09-22] MEDS ORDERED: hydrOXYzine HCl 25 MG Tab PO ONE (13:46)
[2021-09-22 13:58] VITALS: BP 143/86; PULSE 80
[2021-09-22] MEDS ORDERED: Sertraline 50 MG Tab PO SCH (14:00)
[2021-09-22] MEDS ORDERED: Metoprolol Tartrate 25 MG Tab PO SCH (14:00)
== END 2021-09-22 16:30 ==
LOC: JP.ED 21:53
DX: F32.A Depression, unspecified (principal); I10 Essential (primary) hypertension; Z72.0 Tobacco use; Z88.0 Allergy status to penicillin; Z20.822 Contact with and (suspected) exposure to COVID-19
CPT/HCPCS: 36415; 80053; 80305; 80307; 81001; 85025; 87635; 99285; A9270; U0002